=== PATIENT | male | born 1995 | race Two or more races ===

== ENCOUNTER 2017-07-30 00:18 | Inpatient (IN) | payer OTHER ==
[~2017-07-30] VITALS: Ht 175.3 cm; Wt 94.4 kg
[2017-07-30 02:04] LABS: Urine RBC None Seen /hpf (0 - 3)
[2017-07-30 02:39] LABS: Urine Bilirubin Negative (Negative); Urine Blood Negative /uL (Negative); Urine Color Yellow (Yellow); Urine Glucose Normal (Normal); Urine Ketone 4+ (Negative); Urine Mucus FEW (None Seen); Urine Nitrite Negative (Negative); Urine Urobilinogen Normal (Negative); Urine pH 6.5 (5.0-8.0)
[2017-07-30 05:04] LABS: Basophils # (auto) 0 uL; Eosinophils # (auto) 0 uL; Hemoglobin 15.6 g/dL (13.5-17.5); Monocytes # (auto) 0.4 uL; Monocytes % (auto) 2.6 % (0.0-12.0)
[2017-07-30 05:06] LABS: Basophils % (auto) 0.2 % (0.0-2.0); Hematocrit 46.5 % (41.0-53.0); Lymphocytes # (auto) 0.6 uL; Lymphocytes % (auto) 3.8 % (10.0-50.0); Mean Corpuscular Hgb Conc. 33.5 g/dL (32.0-36.0); Mean Corpuscular Volume 78.4 fL (80.0-100.0); Mean Platelet Volume 8.7 fL (6.9-10.8); Neutrophils # (auto) 15.3 uL; Neutrophils % (auto) 93.4 % (37.0-80.0); Platelet Count (auto) 213 10^3/uL (140-450); Red Cell Distribution Width 13.6 % (11.8-14.3); White Blood Cell 16.4 10^3/uL (4.4-10.8)
[2017-07-30 05:08] LABS: Mean Corpuscular Hemoglobin 26.5 pg (28.0-32.0)
[2017-07-30 05:15] LABS: Albumin 4.5 g/dL (3.4-5.0); BUN/Creatinine Ratio 8.6; Potassium 3.9 mmol/L (3.5-5.1)
[2017-07-30 05:18] LABS: Bilirubin, Total 0.8 mg/dL (0.2-1.0); Total Protein 7.7 g/dL (6.4-8.2)
[2017-07-30] MEDS ORDERED: SODIUM CHLORIDE 0.9% 1,000 ML IVB ONE (06:24)
[2017-07-30] MEDS ORDERED: metroNIDAZOLE 500MG/100ML 100 ML IV ONE ×3 (06:30→12:42)
[2017-07-30] MEDS ORDERED: cefTRIAXone 1GM/50ML D5W 50 ML IV ONE (06:30)
[2017-07-30 07:08] LABS: INR 0.98 (0.9-1.15); Partial Thromboplastin Time 36.9 sec (22.64-33.71); Prothrombin Time 10.7 sec (9.37-12.3)
[2017-07-30] MEDS ORDERED: NALBUPHINE HCL 10 MG/1ml INJECTION IV ONE (09:30)
[2017-07-30] MEDS ORDERED: PROMETHAZINE HCL 25 MG/ML 1ML IV ONE (09:30)
[2017-07-30] MEDS ORDERED: LIDOCAINE HCL 2 %PF INJ 10ML AMP IJ ONE (11:30)
[2017-07-30] MEDS ORDERED: ROCURONIUM 10MG/ML 10ML VIAL IV ONE (11:30)
[2017-07-30] MEDS ORDERED: fentaNYL CITRATE 100 MCG/2 ML VL ONE (11:30)
[2017-07-30] MEDS ORDERED: PROPOFOL 10 MG/ML 20 ML IV ONE (11:30)
[2017-07-30] MEDS ORDERED: ONDANSETRON HCL 4 MG/2 ML VIAL ONE (11:47)
[2017-07-30] MEDS ORDERED: METOCLOPRAMIDE HCL 5MG/ml INJ 2ml VIAL ONE (11:47)
[2017-07-30] MEDS ORDERED: diphenhdrAMINE HCL 50 MG/1 ML VL ONE (11:47)
[2017-07-30] MEDS ORDERED: ceFAZolin 1GM VL ONE (11:47)
[2017-07-30] MEDS ORDERED: DEXAMETHASONE SOD PHOS 10MG/1ML VIAL INJ ONE (11:47)
[2017-07-30] MEDS ORDERED: GLYCOPYRROLATE 0.2 MG/ML 1ML VIAL ONE (12:13)
[2017-07-30] MEDS ORDERED: NEOSTIGMINE 1 MG/ML INJ (10mg/10ML VIAL) ONE (12:13)
[2017-07-30] MEDS ORDERED: POVIDONE IODINE 10 % TOPICAL OINT 30GM TOP ONE (12:17)
[2017-07-30] MEDS ORDERED: ceFAZolin 1GM/50ML 50 ML IV ONE (12:30)
[2017-07-30] MEDS ORDERED: ONDANSETRON HCL 4 MG/2 ML VIAL IV ONE (12:30)
[2017-07-30] MEDS ORDERED: HYDROmorphone HCL 2 MG/ML VL IV ONE (12:30)
[2017-07-30] MEDS ORDERED: NALOXONE HCL 0.4 MG/ML VIAL IV PRN (12:45)
[2017-07-30] MEDS ORDERED: HYDROmorphone HCL 2 MG/ML VL IV PRN (12:45)
[2017-07-30 16:00] VITALS: BP 107/67
[2017-07-30] MEDS: HYDROmorphone HCL 2 MG/ML VL IV PRN ×2 (16:07→22:17)
[2017-07-30 16:26] VITALS: BP 115/72
[2017-07-30] MEDS ORDERED: VANCOMYCIN PER PHARMACY 0 MG IV SCH (16:45)
[2017-07-30] MEDS ORDERED: SODIUM CHLORIDE 0.9% 1,000 ML IV ONE (16:45)
[2017-07-30 16:48] LABS: INR 1.03 (0.9-1.15); Partial Thromboplastin Time 36.1 sec (22.64-33.71); Prothrombin Time 11.2 sec (9.37-12.3)
[2017-07-30 17:00] LABS: Eosinophils # (auto) 0 uL; Lymphocytes # (auto) 0.5 uL; Mean Corpuscular Volume 78.2 fL (80.0-100.0); Monocytes # (auto) 1.8 uL; Nucleated Red Blood Cells % 0.1 %
[2017-07-30 17:02] LABS: Basophils # (auto) 0 uL; Basophils % (auto) 0.1 % (0.0-2.0); Hematocrit 37.9 % (41.0-53.0); Hemoglobin 12.5 g/dL (13.5-17.5); Lymphocytes % (auto) 2.4 % (10.0-50.0); Mean Corpuscular Hemoglobin 25.7 pg (28.0-32.0); Mean Corpuscular Hgb Conc. 32.9 g/dL (32.0-36.0); Mean Platelet Volume 8.7 fL (6.9-10.8); Monocytes % (auto) 7.7 % (0.0-12.0); Neutrophils # (auto) 20.9 uL; Neutrophils % (auto) 89.8 % (37.0-80.0); Platelet Count (auto) 275 10^3/uL (140-450); Red Cell Distribution Width 13.6 % (11.8-14.3); White Blood Cell 23.3 10^3/uL (4.4-10.8)
[2017-07-30] MEDS: SODIUM CHLORIDE 0.9% 1,000 ML IV SCH (18:06)
[2017-07-30] MEDS: PIPERACILLIN-TAZOB 3.375GM 50 ML IV SCH (18:06)
[2017-07-30] MEDS ORDERED: VANCOMYCIN 1,500 MG in SODIUM CHL 0.9% 250 ML IV ONE (19:30)
[2017-07-30 20:00] VITALS: BP 103/56
[2017-07-30 20:57] VITALS: BP 103/56
[2017-07-30 21:00] VITALS: BP 111/59
[2017-07-30 21:10] VITALS: BP 111/59
[2017-07-31] VITALS (12 sets, daily range): BP systolic 98–142; BP diastolic 40–62
[2017-07-31] MEDS: SODIUM CHLORIDE 0.9% 1,000 ML IV SCH ×3 (02:30→17:55)
[2017-07-31] MEDS ORDERED: VANCOMYCIN 1GM/250ML 250 ML IV SCH (05:00)
[2017-07-31 05:24] LABS: Basophils # (auto) 0 uL
[2017-07-31 05:29] LABS: Basophils % (auto) 0.1 % (0.0-2.0); Eosinophils # (auto) 0 uL; Hematocrit 26.1 % (41.0-53.0); Hemoglobin 8.6 g/dL (13.5-17.5); Lymphocytes # (auto) 1.3 uL; Lymphocytes % (auto) 10.5 % (10.0-50.0); Mean Corpuscular Hemoglobin 26.1 pg (28.0-32.0); Mean Platelet Volume 8.5 fL (6.9-10.8); Monocytes # (auto) 1.5 uL; Neutrophils # (auto) 9.8 uL; Neutrophils % (auto) 77.4 % (37.0-80.0); Platelet Count (auto) 177 10^3/uL (140-450); Red Cell Distribution Width 13.4 % (11.8-14.3); White Blood Cell 12.7 10^3/uL (4.4-10.8)
[2017-07-31] MEDS: PIPERACILLIN-TAZOB 3.375GM 50 ML IV SCH ×5 (05:30→23:37)
[2017-07-31 05:37] LABS: INR 1.06 (0.9-1.15); Partial Thromboplastin Time 35.7 sec (22.64-33.71); Prothrombin Time 11.6 sec (9.37-12.3)
[2017-07-31 05:40] LABS: Albumin 2.6 g/dL (3.4-5.0); BUN/Creatinine Ratio 10.4; Potassium 4.7 mmol/L (3.5-5.1)
[2017-07-31 05:43] LABS: Bilirubin, Total 0.9 mg/dL (0.2-1.0); Total Protein 5.3 g/dL (6.4-8.2)
[2017-07-31] MEDS ORDERED: DESMOPRESSIN INJECTION 20 MCG in SODIUM CHL 0.9% 50 ML IV ONE (12:30)
[2017-07-31] MEDS: HYDROcodone-ACET 5/325MG TAB PO PRN (14:58)
[2017-07-31] MEDS: HYDROmorphone HCL 2 MG/ML VL IV PRN (19:45)
[2017-08-01] VITALS (12 sets, daily range): BP systolic 107–127; BP diastolic 48–73
[2017-08-01] MEDS: HYDROmorphone HCL 2 MG/ML VL IV PRN ×2 (01:51→09:43)
[2017-08-01] MEDS: SODIUM CHLORIDE 0.9% 1,000 ML IV SCH ×3 (05:10→22:00)
[2017-08-01] MEDS: PIPERACILLIN-TAZOB 3.375GM 50 ML IV SCH ×3 (05:52→17:40)
[2017-08-01 05:54] LABS: Basophils # (auto) 0 uL; Eosinophils # (auto) 0 uL; Hemoglobin 8.3 g/dL (13.5-17.5); Mean Corpuscular Volume 78.4 fL (80.0-100.0); Mean Platelet Volume 8.1 fL (6.9-10.8); Monocytes # (auto) 1.1 uL
[2017-08-01 05:56] LABS: Basophils % (auto) 0.2 % (0.0-2.0); Hematocrit 24.2 % (41.0-53.0); Lymphocytes # (auto) 1.4 uL; Lymphocytes % (auto) 12.4 % (10.0-50.0); Mean Corpuscular Hemoglobin 26.8 pg (28.0-32.0); Mean Corpuscular Hgb Conc. 34.2 g/dL (32.0-36.0); Monocytes % (auto) 9.3 % (0.0-12.0); Neutrophils % (auto) 78.1 % (37.0-80.0); Platelet Count (auto) 138 10^3/uL (140-450); Red Cell Distribution Width 13.7 % (11.8-14.3); White Blood Cell 11.5 10^3/uL (4.4-10.8)
[2017-08-01 06:10] LABS: INR 0.99 (0.9-1.15); Partial Thromboplastin Time 42.8 sec (22.64-33.71); Prothrombin Time 10.8 sec (9.37-12.3)
[2017-08-01] MEDS: HYDROcodone-ACET 5/325MG TAB PO PRN (12:07)
[2017-08-01] MEDS: ACETAMINOPHEN 325 MG TAB PO PRN (17:40)
[2017-08-01 19:06] LABS: Hematocrit 29.5 % (41.0-53.0)
[2017-08-02] MEDS: PIPERACILLIN-TAZOB 3.375GM 50 ML IV SCH ×2 (00:16→05:37)
[2017-08-02] MEDS: HYDROcodone-ACET 5/325MG TAB PO PRN ×3 (00:20→21:18)
[2017-08-02] MEDS: HYDROmorphone HCL 2 MG/ML VL IV PRN ×2 (02:16→13:51)
[2017-08-02 05:00] VITALS: BP 122/66
[2017-08-02 06:40] LABS: Basophils # (auto) 0 uL; Basophils % (auto) 0.2 % (0.0-2.0); Eosinophils # (auto) 0.1 uL; Hematocrit 31.7 % (41.0-53.0); Hemoglobin 10.6 g/dL (13.5-17.5); Lymphocytes # (auto) 1.8 uL; Lymphocytes % (auto) 21.3 % (10.0-50.0); Mean Corpuscular Hemoglobin 26.9 pg (28.0-32.0); Mean Corpuscular Hgb Conc. 33.5 g/dL (32.0-36.0); Mean Corpuscular Volume 80.1 fL (80.0-100.0); Mean Platelet Volume 8.4 fL (6.9-10.8); Monocytes # (auto) 0.9 uL; Neutrophils # (auto) 5.8 uL; Neutrophils % (auto) 67.5 % (37.0-80.0); Platelet Count (auto) 180 10^3/uL (140-450); Red Cell Distribution Width 14.2 % (11.8-14.3); White Blood Cell 8.6 10^3/uL (4.4-10.8)
[2017-08-02 06:43] LABS: BUN/Creatinine Ratio 6.5; Calcium 8.8 mg/dL (8.5-10.1); Potassium 3.5 mmol/L (3.5-5.1)
[2017-08-02 09:00] VITALS: BP 134/72
[2017-08-02] MEDS: SODIUM CHLORIDE 0.9% 1,000 ML IV SCH (12:39)
[2017-08-02] MEDS: LEVOFLOXACIN 500 MG TAB PO SCH (12:40)
[2017-08-02 13:00] VITALS: BP 126/73
[2017-08-02] MEDS: metroNIDAZOLE 500 MG TAB PO SCH ×2 (13:50→22:23)
[2017-08-02 17:55] VITALS: BP 139/86
[2017-08-02 21:58] VITALS: BP 132/70
[2017-08-03] MEDS: HYDROcodone-ACET 5/325MG TAB PO PRN (04:52)
[2017-08-03 05:00] VITALS: BP 130/77
[2017-08-03] MEDS: metroNIDAZOLE 500 MG TAB PO SCH (05:53)
[2017-08-03] MEDS: SODIUM CHLORIDE 0.9% 1,000 ML IV SCH (05:54)
[2017-08-03 06:56] LABS: Basophils # (auto) 0 uL; Basophils % (auto) 0.4 % (0.0-2.0); Eosinophils # (auto) 0.2 uL; Hemoglobin 10.7 g/dL (13.5-17.5); Lymphocytes # (auto) 0.9 uL; Mean Platelet Volume 7.9 fL (6.9-10.8); Monocytes # (auto) 0.7 uL; Red Cell Distribution Width 13.9 % (11.8-14.3)
[2017-08-03 06:59] LABS: Eosinophils % (auto) 3.4 % (0.0-7.0); Hematocrit 32.5 % (41.0-53.0); Lymphocytes % (auto) 14.5 % (10.0-50.0); Mean Corpuscular Hemoglobin 26.4 pg (28.0-32.0); Mean Corpuscular Volume 80.1 fL (80.0-100.0); Neutrophils # (auto) 4.5 uL; Neutrophils % (auto) 70.7 % (37.0-80.0); Nucleated Red Blood Cells % 0.1 %; Platelet Count (auto) 222 10^3/uL (140-450); White Blood Cell 6.4 10^3/uL (4.4-10.8)
[2017-08-03 07:13] LABS: BUN/Creatinine Ratio 9.4; Calcium 8.7 mg/dL (8.5-10.1); Potassium 3.1 mmol/L (3.5-5.1)
[2017-08-03 09:00] VITALS: BP 127/72
[2017-08-03] MEDS ORDERED: POTASSIUM CHL 20 Meq TABLET PO ONE (09:00)
[2017-08-03] MEDS: ACETAMINOPHEN 325 MG TAB PO PRN (09:29)
[2017-08-03] MEDS: LEVOFLOXACIN 500 MG TAB PO SCH (09:29)
[2017-08-03 10:26] VITALS: BP 127/72
== END 2017-08-03 12:05 | disposition home or self-care (01) | DRG 338 ==
LOC: ER 00:21 → DOU IN ICU 00:22 → TELE-CENTR 07-31 19:25
PROVIDERS: ADMIT Emergency Medicine; ATTEND Internal Medicine
PROC: 30233M1 Transfusion of Nonautologous Plasma Cryoprecipitate into Peripheral Vein, Percutaneous Approach (ICD-10-PCS; 2017-07-30)
PROC: 0DTJ4ZZ Resection of Appendix, Percutaneous Endoscopic Approach (ICD-10-PCS; principal; 2017-07-30 11:35)
PROC: 30233N1 Transfusion of Nonautologous Red Blood Cells into Peripheral Vein, Percutaneous Approach (ICD-10-PCS; 2017-07-31)
PROC: 30233N1 Transfusion of Nonautologous Red Blood Cells into Peripheral Vein, Percutaneous Approach (ICD-10-PCS; 2017-08-01)
DX: K35.2 Acute appendicitis with generalized peritonitis (principal); D66 Hereditary factor VIII deficiency; D64.9 Anemia, unspecified
CPT/HCPCS: 36415; 71010; 74176; 80048; 80053; 80307; 81001; 82270; 83605; 83690; 83735; 85014; 85018; 85025; 85610; 85730; 86850; 86900; 86901; 86920; 87040; 87081; 96365; 96367; 96375; J0690; J0696; J1100; J2405; J2543; J2704; J3490

== ENCOUNTER 2017-09-22 14:20 | Inpatient (IN) | payer MEDICAID, OTHER ==
[~2017-09-22] VITALS: Ht 167.6 cm; Wt 72.5 kg
[2017-09-22 14:54] LABS: Basophils # (auto) 0 uL; Eosinophils # (auto) 0 uL; Hemoglobin 14.7 g/dL (13.5-17.5); Lymphocytes # (auto) 1.3 uL; Lymphocytes % (auto) 10.1 % (10.0-50.0); Monocytes # (auto) 0.5 uL
[2017-09-22 14:57] LABS: Basophils % (auto) 0.3 % (0.0-2.0); Eosinophils % (auto) 0.1 % (0.0-7.0); Mean Corpuscular Hemoglobin 25.2 pg (28.0-32.0); Mean Corpuscular Hgb Conc. 31.9 g/dL (32.0-36.0); Mean Corpuscular Volume 79.1 fL (80.0-100.0); Monocytes % (auto) 3.9 % (0.0-12.0); Neutrophils # (auto) 10.8 uL; Neutrophils % (auto) 85.6 % (37.0-80.0); Platelet Count (auto) 367 10^3/uL (140-450); Red Blood Cells 5.82 10^6/uL (4.5-5.90); Red Cell Distribution Width 15.5 % (11.8-14.3); White Blood Cell 12.6 10^3/uL (4.4-10.8)
[2017-09-22 15:07] LABS: Albumin 4.1 g/dL (3.4-5.0); BUN/Creatinine Ratio 10.9; Bilirubin, Total 0.7 mg/dL (0.2-1.0); Calcium 9.1 mg/dL (8.5-10.1); Potassium 3.7 mmol/L (3.5-5.1); Total Protein 8.2 g/dL (6.4-8.2)
[2017-09-22] MEDS ORDERED: IOHEXOL 300 MG/ML 100ML BOTTLE IJ ONE ×2 (15:39→17:28)
[2017-09-22 15:50] LABS: INR 1.02 (0.9-1.15); Partial Thromboplastin Time 41.3 sec (22.64-33.71); Prothrombin Time 11.1 sec (9.37-12.3)
[2017-09-22] MEDS ORDERED: TEMAZEPAM 15 MG CAP PO PRN (22:15)
[2017-09-22] MEDS ORDERED: ONDANSETRON HCL 4 MG/2 ML VIAL IV PRN (22:15)
[2017-09-22] MEDS ORDERED: ACETAMINOPHEN 325 MG TAB PO PRN (22:15)
[2017-09-22] MEDS ORDERED: PIPERACILLIN-TAZOB 3.375GM 50 ML IV ONE (22:15)
[2017-09-22] MEDS ORDERED: HYDROcodone-ACET 5/325MG TAB PO PRN (22:15)
[2017-09-22] MEDS ORDERED: metroNIDAZOLE 500MG/100ML 100 ML IV ONE (22:15)
[2017-09-22] MEDS: FAMOTIDINE 20 MG TAB PO SCH (22:28)
[2017-09-23 00:43] VITALS: BP 118/77
[2017-09-23] MEDS ORDERED: INFLUENZA QUAD 2017-2018 0.5 ML SYRG IM SCH (02:15)
[2017-09-23] MEDS ORDERED: INFLUENZA QUAD 2017-2018 0.5 ML SYRG IM ONE (02:30)
[2017-09-23 05:00] VITALS: BP 99/54
[2017-09-23] MEDS: metroNIDAZOLE 500MG/100ML 100 ML IV SCH ×3 (05:49→21:04)
[2017-09-23] MEDS ORDERED: PIPERACILLIN-TAZOB 3.375GM 50 ML IV SCH (07:00)
[2017-09-23 07:18] LABS: Potassium 3.9 mmol/L (3.5-5.1)
[2017-09-23 07:22] LABS: Albumin 3.3 g/dL (3.4-5.0); BUN/Creatinine Ratio 16.5; Calcium 8.8 mg/dL (8.5-10.1)
[2017-09-23 07:23] LABS: Basophils # (auto) 0 uL; Eosinophils # (auto) 0.1 uL; Lymphocytes # (auto) 1.8 uL; Monocytes # (auto) 0.6 uL
[2017-09-23 07:24] LABS: Basophils % (auto) 0.6 % (0.0-2.0); Bilirubin, Total 0.6 mg/dL (0.2-1.0); Eosinophils % (auto) 1.1 % (0.0-7.0); Hematocrit 41.3 % (41.0-53.0); Hemoglobin 13.4 g/dL (13.5-17.5); Lymphocytes % (auto) 21.6 % (10.0-50.0); Mean Corpuscular Hemoglobin 25.5 pg (28.0-32.0); Mean Corpuscular Hgb Conc. 32.4 g/dL (32.0-36.0); Mean Corpuscular Volume 78.8 fL (80.0-100.0); Monocytes % (auto) 7.6 % (0.0-12.0); Neutrophils # (auto) 5.6 uL; Neutrophils % (auto) 69.1 % (37.0-80.0); Nucleated Red Blood Cells % 0.1 %; Platelet Count (auto) 290 10^3/uL (140-450); Red Blood Cells 5.24 10^6/uL (4.5-5.90); Red Cell Distribution Width 15.2 % (11.8-14.3); Total Protein 6.7 g/dL (6.4-8.2); White Blood Cell 8.2 10^3/uL (4.4-10.8)
[2017-09-23 09:22] VITALS: BP 119/56
[2017-09-23] MEDS: FAMOTIDINE 20 MG TAB PO SCH ×2 (09:32→21:04)
[2017-09-23] MEDS: PIPERACILLIN-TAZOB 3.375GM 50 ML IV SCH ×3 (11:44→23:37)
[2017-09-23 13:44] VITALS: BP 110/60
[2017-09-23 17:35] VITALS: BP 111/59
[2017-09-23 21:30] VITALS: BP 111/62
[2017-09-24] MEDS: metroNIDAZOLE 500MG/100ML 100 ML IV SCH ×3 (05:18→21:02)
[2017-09-24 05:19] VITALS: BP 116/73
[2017-09-24] MEDS: PIPERACILLIN-TAZOB 3.375GM 50 ML IV SCH ×4 (06:11→23:46)
[2017-09-24 07:19] LABS: Eosinophils # (auto) 0.1 uL; Eosinophils % (auto) 1.4 % (0.0-7.0); Hemoglobin 13.2 g/dL (13.5-17.5); Lymphocytes # (auto) 1.6 uL; Mean Corpuscular Hemoglobin 25.9 pg (28.0-32.0); Monocytes # (auto) 0.5 uL; Neutrophils # (auto) 4.1 uL; White Blood Cell 6.3 10^3/uL (4.4-10.8)
[2017-09-24 07:22] LABS: Basophils # (auto) 0.1 uL; Lymphocytes % (auto) 25.2 % (10.0-50.0); Mean Corpuscular Hgb Conc. 32.9 g/dL (32.0-36.0); Mean Corpuscular Volume 78.5 fL (80.0-100.0); Monocytes % (auto) 7.1 % (0.0-12.0); Neutrophils % (auto) 65.3 % (37.0-80.0); Platelet Count (auto) 245 10^3/uL (140-450); Red Cell Distribution Width 15.5 % (11.8-14.3)
[2017-09-24 07:25] LABS: Potassium 3.5 mmol/L (3.5-5.1)
[2017-09-24 07:29] LABS: BUN/Creatinine Ratio 12.2
[2017-09-24 09:23] VITALS: BP 111/64
[2017-09-24] MEDS: FAMOTIDINE 20 MG TAB PO SCH ×2 (09:41→21:02)
[2017-09-24 12:49] VITALS: BP 108/62
[2017-09-24 17:49] VITALS: BP 110/67
[2017-09-24 21:30] VITALS: BP 113/69
[2017-09-25] MEDS: metroNIDAZOLE 500MG/100ML 100 ML IV SCH ×2 (04:48→13:48)
[2017-09-25 05:00] VITALS: BP 115/68
[2017-09-25] MEDS: PIPERACILLIN-TAZOB 3.375GM 50 ML IV SCH ×2 (06:02→11:41)
[2017-09-25 08:00] VITALS: BP 114/64
[2017-09-25 08:32] VITALS: BP 114/64
[2017-09-25] MEDS ORDERED: LIDOCAINE 2%HCL (LOCAL ANESTH.) INJ 20ML MDV ONE (10:22)
[2017-09-25] MEDS: FAMOTIDINE 20 MG TAB PO SCH (11:40)
[2017-09-25 11:52] VITALS: BP 114/67
[2017-09-25 12:35] VITALS: BP 114/64
[2017-09-25] MEDS ORDERED: INFLUENZA QUAD 2017-2018 0.5 ML SYRG IM ONE (15:54)
[2017-09-25 17:03] VITALS: BP 131/68
== END 2017-09-25 18:40 | disposition home or self-care (01) | DRG 721 ==
LOC: ER 14:20 → EAST 14:21
PROVIDERS: ADMIT Nurse Practitioner; ATTEND Internal Medicine
PROC: 0W2GX0Z Change Drainage Device in Peritoneal Cavity, External Approach (ICD-10-PCS; principal; 2017-09-25)
DX: T81.4XXA Infection following a procedure, initial encounter (principal); R65.10 Systemic inflammatory response syndrome (SIRS) of non-infectious origin without acute organ dysfunction; L02.211 Cutaneous abscess of abdominal wall; J45.909 Unspecified asthma, uncomplicated; F17.200 Nicotine dependence, unspecified, uncomplicated; Z90.49 Acquired absence of other specified parts of digestive tract; Z23 Encounter for immunization
CPT/HCPCS: 36415; 49423; 74177; 75984; 75989; 80048; 80053; 85025; 85610; 85730; 87081; 87205; 94761; 96365; 96368; A4223; C1729; J2543; J3490